=== PATIENT | male | born 1935 | race Caucasian/White ===

== ENCOUNTER 2017-12-19 07:20 | Emergency (ER) | payer BC ==
[2017-12-19] MEDS ORDERED: ONDANSETRON 4 MG/2 ML VIAL IVP ONE ×2 (07:42→09:32)
[2017-12-19] MEDS ORDERED: MECLIZINE HCL 25 MG TAB PO ONE (07:42)
--- NOTE | 2017-12-19 07:49 | CPEKG ---
Heart Rate: 75 RR Interval: 800 P-R Interval: 192 QRSD Interval: 74 QT Interval: 416 QTC Interval: 465 P Hartwick: 71 QRS Hartwick: 54 T Wave Hartwick: 58 EKG Severity - NORMAL ECG - EKG Impression: SINUS RHYTHM Electronically Signed By: Tony Sands 19-Dec-2017 15:03:59
[2017-12-19 07:55] LABS: PLATELET COUNT 187 10^3/uL (150-400)
--- NOTE | 2017-12-19 07:57 | EDPHY ---
HPI/HX/ROS/PE/MDM Narrative: CHIEF COMPLAINT: Vertigo, vomiting HPI: The patient is an 82-year-old male with a history of previous CABG and carotid endarterectomy. He reports relatively sudden onset of severe dizziness and a sensation of abnormal movement when his eyes are open. He also reports a mild right-sided headache which is new. The patient states that keeping his eyes closed improved his symptoms dramatically. He denies numbness, weakness or tingling. He does describe a similar episode within the last year which lasted approximately 10 min and resolved spontaneously. He denies chest pain, shortness of breath or other symptoms. REVIEW OF SYSTEMS: Aside from elements discussed in the HPI, a comprehensive 10-point review of systems was reviewed and is negative. PMH: Includes CABG, endarterectomy, TIA. No history of stroke. Not on anticoagulants. SOCIAL HISTORY: The patient is retired professor of [employer]. He denies drug abuse. PHYSICAL EXAM: General:Patient is alert, in no acute distress. ENT:Eyes are normal to inspection. Bilateral horizontal nystagmus is noted. Neck: Normal inspection. Full range of motion. Respiratory:No respiratory distress. Breath sounds normal bilaterally. Cardiovascular: Regular rate and rhythm. Strong peripheral pulses. Normal cap refill. Abdomen:The abdomen is nontender to palpation. There are no peritoneal signs. There are normal bowel sounds. Back: Normal to inspection. No tenderness to palpation. Skin: Normal color. No rash. Warm and dry. Extremities: Normal appearance. Full range of motion. Neuro: Oriented x3. Normal motor function. Normal sensory function. Cranial nerves intact. ED Course: 899- CTA results called to me by Dr. West indicating likely acute occlusion of the vertebral arteries. As this fits with the patient's symptoms, I have called a stroke alert. 910- consulted and discussed case with Dr. Munson from [facility]. I reported CTA findings and he will evaluate the patient. He recommends activating helicopter for emergent transport to [facility] the patient is not a tPA candidate based on timing but appears to be a good candidate for intervention in his posterior arterial system. Under exam at this time, the patient's signs and symptoms have not changed. MDM: This patient presents with sudden onset of vertigo. He had very obvious nystagmus on exam which raised my concern that this potentially represent something other than peripheral vertigo. We performed a CTA of the head and neck which has come back positive for likely acute stroke. Patient is not a tPA candidate but is a candidate for intervention and per consultation with [facility]ist, requires transfer to [facility] for definitive care. I see no evidence of acute coronary syndrome, neck trauma, brain mass or sepsis. I spent a total of 35 minutes of critical care time in obtaining history, performing a physical exam, bedside monitoring of interventions, collecting and interpreting tests and discussion with consultants but not including time spent performing procedures. - Data Points Imaging Results: Imaging Impressions Head CT 12/19/17 07:43 Impression: 1. No evidence of acute intracranial pathology. 2. Unchanged lacunar infarct in the right basal ganglia. 3. Mild diffuse cerebral atrophy with scattered periventricular white matter changes consistent with chronic microvascular ischemia. Findings were communicated by telephone with Dr. Tony Sands MD at 2017 9:10 Head CTA 12/19/17 07:43 Impression: 1. 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 2. Nonenhancement of the distal right vertebral artery, which could represent occlusion or congenital atrophy. 3. Normal enhancement of bilateral posterior inferior cerebellar and superior cerebellar branches. 4. Calcification and moderate stenosis of the left internal carotid artery at the distal cavernous segment. 5. Normal opacification of anterior cerebral, middle cerebral and posterior cerebral arteries. Findings were communicated by telephone with Dr. Tony Sands MD at 2017 9:09 Neck CTA 12/19/17 07:43 Impression: 1. No evidence of arterial occlusive disease in the neck. 2. Atherosclerotic calcification and mild (less than 50%) stenosis of the right carotid bulb. 3. Mild (less than 50%) stenosis of the left subclavian artery. 4. Segmental calcification of the proximal left vertebral artery without discrete stenosis. Findings were communicated by telephone with Dr. Tony Sands MD at 2017 9:16 Measurement of carotid stenosis is based on the residual internal carotid diameter with [place] Symptomatic Carotid Endarterectomy Trial (NASCET) based stenosis levels. Laboratory Results: Laboratory Results 12/19/17 07:45 12/19/17 07:45 12/19/17 12/19/17 12/19/17 07:55 07:45 07:45 WBC RBC Hgb POC Hgb 13.9 gm/dL gm/dL (13.7-17.5) Hct POC Hct 41 % % (40-51) MCV MCH MCHC RDW Plt Count MPV Neut % (Auto) Lymph % (Auto) [place] % (Auto) Eos % (Auto) Baso % (Auto) Nucleat RBC Rel Count Absolute Neuts (auto) Absolute Lymphs (auto) Absolute Monos (auto) Absolute Eos (auto) Absolute Basos (auto) Absolute Nucleated RBC Immature Gran % Immature Gran # PT 13.7 SEC SEC (12.0-15.0) INR 1.03 (0.83-1.16) APTT 23.6 SEC SEC (23.0-38.0) POC Sodium 141 mEq/L mEq/L (135-145) Sodium 140 mEq/L mEq/L (135-145) POC Potassium 4.4 mEq/L mEq/L (3.3-5.0) Potassium 4.6 mEq/L mEq/L (3.5-5.2) POC Chloride 111 mEq/L H mEq/L (97-110) Chloride 112 mEq/L H mEq/L (97-110) Carbon Dioxide 18 mEq/l L mEq/l (22-31) Anion Gap 10 mEq/L mEq/L (8-16) POC BUN 20 mg/dL mg/dL (7-23) BUN 21 mg/dL mg/dL (7-23) Creatinine 1.2 mg/dL mg/dL (0.7-1.3) POC Creatinine 1.4 mg/dL H mg/dL (0.7-1.3) Estimated GFR 58 Glucose 173 mg/dL H mg/dL (70-100) POC Glucose 183 mg/dL H mg/dL (70-100) Calcium 9.3 mg/dL mg/dL (8.5-10.4) Troponin I < 0.012 ng/mL ng/mL (0.000-0.034) 12/19/17 07:45 WBC 9.38 10^3/uL 10^3/uL (3.80-9.50) RBC 4.60 10^6/uL 10^6/uL (4.40-6.38) Hgb 13.4 g/dL L g/dL (13.7-17.5) POC Hgb Hct 40.7 % % (40.0-51.0) POC Hct MCV 88.5 fL fL (81.5-99.8) MCH 29.1 pg pg (27.9-34.1) MCHC 32.9 g/dL g/dL (32.4-36.7) RDW 14.0 % % (11.5-15.2) Plt Count 187 10^3/uL 10^3/uL (150-400) MPV 9.3 fL fL (8.7-11.7) Neut % (Auto) 80.5 % H % (39.3-74.2) Lymph % (Auto) 10.4 % L % (15.0-45.0) [place] % (Auto) 7.2 % % (4.5-13.0) Eos % (Auto) 1.2 % % (0.6-7.6) Baso % (Auto) 0.2 % L % (0.3-1.7) Nucleat RBC Rel Count 0.0 % % (0.0-0.2) Absolute Neuts (auto) 7.54 10^3/uL H 10^3/uL (1.70-6.50) Absolute Lymphs (auto) 0.98 10^3/uL L 10^3/uL (1.00-3.00) Absolute Monos (auto) 0.68 10^3/uL 10^3/uL (0.30-0.80) Absolute Eos (auto) 0.11 10^3/uL 10^3/uL (0.03-0.40) Absolute Basos (auto) 0.02 10^3/uL 10^3/uL (0.02-0.10) Absolute Nucleated RBC 0.00 10^3/uL 10^3/uL (0-0.01) Immature Gran % 0.5 % % (0.0-1.1) Immature Gran # 0.05 10^3/uL 10^3/uL (0.00-0.10) PT INR APTT POC Sodium Sodium POC Potassium Potassium POC Chloride Chloride Carbon Dioxide Anion Gap POC BUN BUN Creatinine POC Creatinine Estimated GFR Glucose POC Glucose Calcium Troponin I Medications Given: Discontinued Medications Sodium Chloride (Ns) 1,000 mls @ 0 mls/hr IV ONCE ONE PRN Reason: Wide Open Stop: 12/19/17 08:19 Last Admin: 12/19/17 08:15 Dose: 1,000 mls Meclizine HCl (Meclizine Hcl) 25 mg PO EDNOW ONE Stop: 12/19/17 07:43 Last Admin: 12/19/17 07:51 Dose: 25 mg Ondansetron HCl (Zofran) 4 mg IVP EDNOW ONE Stop: 12/19/17 07:43 Last Admin: 12/19/17 07:51 Dose: 4 mg Ondansetron HCl (Zofran) 4 mg IVP EDNOW ONE Stop: 12/19/17 09:33 Last Admin: 12/19/17 09:35 Dose: 4 mg Point of Care Test Results: 12/19/17 07:55 POC Sodium 141 POC Potassium 4.4 POC Chloride 111 H POC BUN 20 POC Creatinine 1.4 H POC Glucose 183 H General Time Seen by Provider: 12/19/17 07:33 Initial Vital Signs: Initial Vital Signs Temperature (C) 36.7 C 12/19/17 07:24 Heart Rate 76 12/19/17 07:24 Respiratory Rate 18 12/19/17 07:24 Blood Pressure 138/90 H 12/19/17 07:24 O2 Sat (%) 97 12/19/17 07:24 O2 Delivery Mode Room Air Allergies/Adverse Reactions: No Allergies [NKDA] Allergy (Verified 12/19/17 07:22) RED PEPPERS Allergy (Uncoded 09/24/13 16:55) FEELS SOME DEPRESSION Home Medications: Medication Instructions Recorded Rosuvastatin Calcium [Crestor 40mg 40 mg PO HS 05/26/12 (*)] Ezetimibe 12/19/17 Plavix 12/19/17 Departure - Departure Disposition: Acute Care Hospital [facility] Clinical Impression: Acute ischemic stroke Condition: Serious Referrals: NONE *PRIMARY CARE P,. [Primary Care Provider] - As per Instructions
[2017-12-19] MEDS ORDERED: IOPAMIDOL (ISOVUE 370) 100 ML BTL IV ONE (08:00)
[2017-12-19 08:05] LABS: INR 1.03 (0.83-1.16); PROTIME(PATIENT) 13.7 SEC (12.0-15.0)
[2017-12-19] MEDS ORDERED: NS 1,000 ML IV ONE (08:18)
[2017-12-19] MEDS ORDERED: ALTEPLASE 100 MG/100 ML VIAL IV ONE (09:10)
[2017-12-19 09:24] VITALS: BP 134/80
[2017-12-19] MEDS ORDERED: ONDANSETRON 4 MG/2 ML VIAL ONE (09:31)
== END 2017-12-19 09:40 | disposition short-term general hospital (02) ==
DX: I63.9 Cerebral infarction, unspecified (principal)
CPT/HCPCS: 82947-QW; 96374; J2405; J2997; Q9967

== ENCOUNTER → 2018-04-16 | Outpatient (CLI) | payer BC ==
[~2018-04-16] MED LIST: IOPAMIDOL (ISOVUE 370) 100 ML BTL IV ONE
== END ==
LOC: FIMAGING 12:52
PROVIDERS: ATTEND Internal Medicine Cardiovascular Disease
DX: I65.01 Occlusion and stenosis of right vertebral artery (principal); I65.1 Occlusion and stenosis of basilar artery; I65.22 Occlusion and stenosis of left carotid artery
CPT/HCPCS: 82565-PO; Q9967